=== PATIENT | female | born 1940 | race Caucasian/White ===

== ENCOUNTER 2024-02-20 03:09 | Emergency (ER) | payer MEDICARE, SELFPAY ==
[2024-02-20] VITALS (7 sets, daily range): BP systolic 121–134; BP diastolic 72–86; PULSE 60–92; RESP 16–20; TEMP 36.6–36.8; O2SAT 93–99; BMI 21.5
--- NOTE | 2024-02-20 03:25 | CT_ITS ---
INDICATION: fall EXAMINATION: CT CERVICAL SPINE - CT Spine Cervical W/O Contrast Injection TECHNIQUE: Helically acquired images were obtained of the cervical spine. 2D reformatted images were reviewed. A radiation dose optimization technique was used for this scan. IV Contrast dosage and agent: None. COMPARISON: CT head on same day. FINDINGS: VERTEBRAE: No fracture or acute compression deformity. Mild diffuse endplate degenerative change.. No discrete lytic or blastic abnormality. Degenerative straightening of the normal cervical lordosis without listhesis.. Normal craniocervical junction and cervicothoracic junction. DISCS and SPINAL CANAL: Disc height loss most prominent C5-C6 with minimal posterior disc osteophyte complex causing minimal spinal canal and mild bilateral neural foraminal narrowing.. No critical stenosis. NECK SOFT TISSUES: Right chest cardiac pacer. No prevertebral soft tissue swelling. There is no cervical adenopathy. Opacification bilateral mastoid air cells and middle ear. LUNG APICES: Clear. CT/Spine Cervical without Contras IMPRESSION: No evidence of acute cervical spinal fracture or spondylolisthesis. Findings consistent with bilateral otomastoiditis. Spondylosis as above. Cardiac pacer. Electronically Signed: Arvin Clarke MD at 4:59 EDT ,
--- NOTE | 2024-02-20 03:25 | CT_ITS ---
We are attempting to reach an attending provider to discuss findings. An addendum with communication details will be sent when the communication is complete. INDICATION: head ct EXAMINATION: CT BRAIN - CT Head or Brain W/O Contrast Injection TECHNIQUE: Multiple axial images were obtained of the head without intravenous contrast. A radiation dose optimization technique was used for this scan. IV Contrast dosage and agent: None. COMPARISON: CT cervical spine on same day FINDINGS: BRAIN PARENCHYMA: [Frontoparietal acute on chronic subdural hematoma up to 1.6 cm deep to prior craniotomy with small volume layering acute blood.. 3 mm [id number] midline shift. Suprasellar cisterns are preserved. No hydrocephalus. No intracranial mass. Mild periventricular and subcortical white matter hypodense chronic small vessel white matter ischemic change. Sequela of old left frontal parietal sr radiata lacunar infarct. There is otherwise preservation of the hutchins/white matter interface. Posterior fossa structures are unremarkable. Bilateral carotid atherosclerosis. CSF SPACES: Cerebral volume appropriate for age. No hydrocephalus. Basal cisterns are patent. CALVARIUM, SKULL BASE, PARANASAL SINUSES AND MASTOID AIR CELLS: Opacification bilateral mastoid air cells and middle ears. Old left frontal craniotomy. No acute osseous finding. Acute sphenoid sinus mucoperiosteal thickening.. ORBITS: Both globes, extraocular muscles, optic nerves and retrobulbar fat appear unremarkable. 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 Mild senescent changes with sequela of old left frontoparietal sr radiata lacunar infarct. Findings compatible with bilateral otomastoiditis. Mild diffuse sinus disease. Electronically Signed: Arvin Clarke MD at 4:54 EDT ,
--- NOTE | 2024-02-20 03:59 | EDS_ITS ---
HPI History of Present Illness Chief Complaint: Fall Informant: EMS and SNF Narrative Narrative: Patient is an 83-year-old female from the long term. assisted reports that they checked on the patient this morning and found her lying in her bed but there was blood noted on her pillow. They also reports that the patient was hospitalized earlier this month and prior to the hospitalization she was alert and oriented but now they have noticed she has been confused. The patient cannot tell them why her head was bleeding and therefore with the concern for head injury and confusion she was sent to the hospital for evaluation. [facility] Medical History (Updated 02/20/24 @ 05:[address] 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 Dysphagia Muscle weakness COPD (chronic obstructive pulmonary disease) Cardiac arrhythmia, unspecified Sick sinus syndrome Essential hypertension Depression Unspecified dementia, mild, without behavioral disturbance, psychotic disturbance, mood disturbance, and anxiety Hyperlipemia Home Medications ?Medication ?Instructions ?Recorded ?Last Taken ?Type acetaminophen 650 mg 650 mg PO TID 02/20/24 Unknown History tablet,extended release albuterol sulfate 90 mcg/actuation 2 inh inhalation Q4H PRN shortness 02/20/24 Unknown History aerosol inhaler of breath or wheezing amlodipine 5 mg tablet 5 mg PO DAILY 02/20/24 Unknown History cholecalciferol (vitamin D3) 50 2,000 unit PO DAILY 02/20/24 Unknown History mcg (2,000 unit) capsule (Vitamin D3) docusate sodium 100 mg capsule 100 mg PO QODAY 02/20/24 Unknown History levetiracetam 500 mg tablet 500 mg PO BID 02/20/24 Unknown History lisinopril 5 mg tablet 5 mg PO DAILY 02/20/24 Unknown History melatonin 5 mg capsule 5 mg PO QHS 02/20/24 Unknown History metoprolol tartrate 25 mg tablet 25 mg PO BID 02/20/24 Unknown History potassium chloride 10 mEq 10 meq PO DAILY 02/20/24 Unknown History tablet,extended release sennosides 8.6 mg-docusate sodium 1 tab-cap PO QHS 02/20/24 Unknown History 50 mg tablet (Senna-S) sertraline 100 mg tablet 100 mg PO DAILY 02/20/24 Unknown History simvastatin 40 mg tablet 40 mg PO QPM 02/20/24 Unknown History tiotropium bromide 1.25 2 inh inhalation DAILY 02/20/24 Unknown History mcg/actuation mist for inhalation (Spiriva Respimat) Allergy/AdvReac Type Severity Reaction Status Date / Time No Known Allergies Allergy Verified 02/20/24 03:11 Social History Smoking Status: Never smoker ROS ROS ED ROS Narrative Review of systems cannot be obtained secondary to mental status Review of Systems ROS Unobtainable: due to mental status EXAM Physical Exam Const Vital Signs: 02/20/24 03:13 02/20/24 03:17 02/20/24 05:11 Temperature 97.9 F Temperature Source Temporal Pulse Rate 92 64 Respiratory Rate 16 18 Respiratory Effort Normal Non-Labored Blood Pressure 121/86 H 134/72 H Blood Pressure Mean 97 92 Pulse Ox 99 98 93 Oxygen Delivery Method Nasal Cannula Room Air Room Air Oxygen Flow Rate (L/min) 5 02/20/24 07:00 Temperature Temperature Source Pulse Rate 60 Respiratory Rate 18 Respiratory Effort Blood Pressure 122/76 H Blood Pressure Mean 91 Pulse Ox 93 Oxygen Delivery Method Room Air Oxygen Flow Rate (L/min) Positive well nourished and well developed General Appearance ED: well developed HEENT HEENT Narrative: Patient has a 4 cm curved linear subcutaneous layer deep laceration along the midportion of the occipital/parietal section of the scalp. There is minimal ooze of blood with no retained foreign body. There is a surrounding scalp hematoma as well consistent with trauma. Patient does have surgical changes along the left forehead/temporal portion of the skull/scalp that do correlate with her recent admission for subdural hemorrhage requiring craniotomy. This wound is clean dry and intact without secondary changes to suggest infection. Eyes PERRL and EOMs intact bilaterally General Eye ED: Negative for scleral icterus Neck supple Neck Narrative: No bony deformity or step-off of the cervical spine no midline tenderness to palpation Chest Wall palpation of chest normal Chest Narrative: No bony deformity or crepitance of the chest wall No pain with palpation noted Resp normal respiratory effort and clear to auscultation bilaterally Resp Narrative: Breath sounds are diminished throughout but overall clear to auscultation without signs of distress Cardio regular rate and regular rhythm GI normal to inspection, nondistended, normoactive bowel sounds, non-tender, non- distended and no masses GI Narrative: No voluntary guarding or rigidity or pulsatile mass Auscultation: normoactive bowel sounds Palpation: soft Back/Spine Back/Spine Narrative: No bony deformity or step-off of the thoracic or lumbar spine no midline tenderness to palpation Extremity normal to inspection Extremity Narrative: Pelvis is stable there is no shortening or external rotation of either lower extremity Patient can move all extremities without difficulty or pain Neuro Neuro Narrative: Patient is awake but disoriented. Otherwise she does not have any focal neurologic deficit and can move all extremities and sit up without difficulty Skin Skin Narrative: Laceration with hematoma to the occipital portion of the scalp as well as postsurgical changes to the left frontal portion as documented above MDM MDM MDM Narrative Medical decision making narrative: Patient arrived to the ER with stable vitals. She is awake without focal neurologic deficit but does have confusion and cannot provide history or answer question. Physical exam does show direct trauma to the occipital portion of the scalp with a new laceration. Therefore with concern for skull fracture versus traumatic subdural or subarachnoid hemorrhage a CT scan of the head was obtained. With concern there could also be a cervical compression fracture or spondylolisthesis the CT scan was continued through the cervical spine. She does not have pain with palpation along her thoracic or lumbar spine there is no obvious bony deformity or joint effusion on exam noted her pelvis is stable and therefore my concern for long bone fracture rib fracture or pelvis/hip fracture is low and do not feel there is need for further imaging. Chart review reveals that she was recently in an outside hospital roughly 10 days ago secondary to a traumatic subdural hemorrhage and had undergo craniotomy. The neurosurgeons note from that time states that she will be encephalopathic and most likely be confused for weeks to months prior to it's resolution. Therefore the fact that she is confused is not abnormal from her recent diagnosis and surgical procedure and I feel there is no need for further investigation such as blood work or urine sample. However with the new trauma I did feel it was necessary to perform repeat scans in order to ensure there is no new or recurrent bleed or fracture. Imaging studies this morning show no signs of cervical spine fracture or spondylolisthesis. However there is a new acute on chronic subdural hematoma roughly 1.6 cm in size with 3 mm of shift. Secondary to this acute finding I discussed the case with neurosurgery at [facility] [place] as they have recently operated on and taking care of the patient. The case was discussed with neurosurgeon Dr. Bateman. She recommends as patient is hemodynamically stable at her baseline mental status and not on anticoagulation that it would be more appropriate to watch her and repeat a CT scan 6 hours from the initial. She states that if the CT scan does not show an expanding hematoma and the patient remained stable then she can be discharged back to the long term and follow-up on an outpatient basis. However if the repeat CT scan shows worsening of the bleed or patient becomes hemodynamically unstable or develops seizure activity then she will need to be transferred back to their center for further care. This plan of care was discussed with the patient's son and he is agreeable to it. As the patient has not reached the 6-hour time chrissy for the repeat CT scan the case will be signed out to the day physician Dr. Cota to follow the repeat images and provide disposition. Patient had the scalp wound cleaned with chlorhexidine. It was anesthetized using 8 mL of 2% lidocaine with epinephrine and local fashion. The wound was copiously irrigated with normal saline. Then 10 sue were placed across the wound edges bring it together with good approximation. Patient tolerated procedure well without complication. History & Record Review Discussion w/independent historian: Family Additional record(s) reviewed:: Prior inpatient record Lab Data Attestation: I reviewed the patient's lab results. 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 Mild senescent changes with sequela of old left frontoparietal sr radiata lacunar infarct. Findings compatible with bilateral otomastoiditis. Mild diffuse sinus disease. 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 Mild senescent changes with sequela of old left frontoparietal sr radiata lacunar infarct. Findings compatible with bilateral otomastoiditis. Mild diffuse sinus disease. N.B. : The above Results were Read Back by Arvin Clarke MD to Zain Rosenberg DO, and understanding confirmed on 02/20/2024 05:01:17 (ET). Electronically Signed: Arvin Clarke MD at 4:54 EDT , Cervical Spine CT 02/20/24 03:25 IMPRESSION: No evidence of acute cervical spinal fracture or spondylolisthesis. Findings consistent with bilateral otomastoiditis. Spondylosis as above. Cardiac pacer. Electronically Signed: Arvin Clarke MD at 4:59 EDT , Management Discussion w/another healthcare provider: [employer] Radiologist Discharge Plan Triage Chief Complaint: Fall ED Provider: Zain Rosenberg Dx/Rx/DC Orders Clinical Impression: Laceration of occipital scalp, Hematoma of occipital region of scalp, Accidental fall, Hypertension, Hyperlipidemia, History of subdural hemorrhage, Subdural hematoma, acute Instructions: ED Laceration Scalp Stitches or [place] Prescriptions: No Action Spiriva Respimat 1.25 mcg/actuation mist 2 inh inhalation DAILY cholecalciferol (vitamin D3) [Vitamin D3] 50 mcg (2,000 unit) capsule 2,000 unit PO DAILY docusate sodium 100 mg capsule 100 mg PO QODAY levetiracetam 500 mg tablet 500 mg PO BID sertraline 100 mg tablet 100 mg PO DAILY potassium chloride 10 mEq tablet extended release 10 meq PO DAILY simvastatin 40 mg tablet 40 mg PO QPM lisinopril 5 mg tablet 5 mg PO DAILY metoprolol tartrate 25 mg tablet 25 mg PO BID amlodipine 5 mg tablet 5 mg PO DAILY acetaminophen 650 mg tablet extended release 650 mg PO TID albuterol sulfate 90 mcg/actuation HFA aerosol inhaler 2 inh inhalation Q4H PRN (Reason: shortness of breath or wheezing) melatonin 5 mg capsule 5 mg PO QHS sennosides-docusate sodium [Senna-S] 8.6-50 mg tablet 1 tab-cap PO QHS Primary Care Provider: Ye Gómez Referrals: Ye Gómez DO [Primary Care Provider] - Activity Restrictions/Additional Instructions: Please see your family doctor or return to the ER in 10 to 14 days for staple removal. Continue all of your home medications as previously directed and return to the ER if you have any further concerns. Also please follow-up with the neurosurgeon as directed secondary to the acute on chronic bleed that occurred after today's head trauma Print Language: [place] Zealander
[2024-02-20] MEDS: Lidocaine 2% /Epi 1:100 (20ml) 20 ML VIAL INFILT (04:10)
[2024-02-20 06:10] LABS: Absolute Lymphocyte Count 2.01 X10^3/uL (0.83-4.51); Absolute Neutrophil Count 8.2 X10^3/uL (2.0-7.7); Basophil# 0.07 X10^3/uL; Basophil% 0.6 % (0-1); Eosinophil# 0.17 X10^3/uL; Eosinophils% 1.5 % (0-5); Hematocrit 37.6 % (37-47); Hemoglobin 12.1 g/dL (12.0-15.0); Lymphocyte # 2.01 X10^3/ul (0.83-4.51); Lymphocyte % 17.6 % (19-41); Mean Corp Hgb Conc 32.2 g/dL (32-36); Mean Corpuscular Hgb 28.5 pg (27.0-32.0); Mean Corpuscular Volume 88.5 fL (81-99); Mean Platelet Vol. 10.2 fl (6.2-12.0); Monocyte# 0.87 X10^3/uL; Monocyte% 7.6 % (0-10); NRBC Flagged by Analyzer 0 % (0-5); Neutrophil # 8.15 X10^3/uL (2.7-7.7); Neutrophil % 71.6 % (47-70); Platelet Count 222 K/mm3 (150-450); RBC Distribution Width CV 14.8 % (11.6-14.6); RBC Distribution Width SD 47.8 fl (35.1-43.9); Red Blood Count 4.25 M/mm3 (4.2-5.4); White Blood Count 11.4 K/mm3 (4.4-11.0)
[2024-02-20 06:21] LABS: International Normalized Ratio 1.8; Prothrombin Time (Protime)PT. 20.9 SECONDS (11.7-14.9)
[2024-02-20 06:22] LABS: Partial Thromboplast Time 44.1 Seconds (24.1-36.2)
--- NOTE | 2024-02-20 09:40 | CT_ITS ---
STUDY: CT BRAIN WITHOUT CONTRAST REASON FOR EXAM: Female, 83 years old. Head injury -- Acute on chronic subdural. Check if increasing RADIATION DOSAGE (If Supplied By Facility): CTDIvol = ( 44.99 ) mGy, DLP = ( 796.11 ) mGycm TECHNIQUE: Transaxial CT imaging of the brain was performed without administration of intravenous contrast material. Individualized dose optimization techniques were used for this CT. COMPARISON: Comparison is made with prior study done earlier in the day. FINDINGS: Normal soft tissue structures. Patient is status post left frontal craniotomy. Stable acute on chronic subdural hematoma overlying the left frontal parietal lobes. There is mild cerebral atrophy with widening of the extra-axial spaces and ventricular dilatation. There are areas of decreased attenuation within the white matter tracts of the supratentorial brain, consistent with microvascular disease changes. Stable small bilateral lacunar infarcts in the basal ganglia. Normal brainstem. Normal cerebellum. Stable opacification of the bilateral mastoid air cells and middle ear. CT/Brain/Head without Contrast IMPRESSION: Stable appearance of the left acute on chronic subdural hematoma. Electronically Signed: Eduardo Toro MD at 10:03 EDT ,
[2024-02-20 09:47] LABS: Anion Gap 11 (5-15); BUN 13 mg/dL (7-18); BUN/Creat Ratio 20.6 RATIO (10-20); Calcium,Total 9.1 mg/dL (8.5-10.1); Chloride 104 mmol/L (98-107); Creatinine, Serum 0.63 mg/dL (0.55-1.02); EST Glomerular Filtration Rate 95 mL/min (>60); Est Glom Filt Rate - Afr Amer 115 mL/min (>60); Glucose 99 mg/dL (74-106); Potassium 3.2 mmol/L (3.5-5.1); Sodium Level 140 mmol/L (136-145)
--- NOTE | 2024-02-20 10:33 | ED.RN ---
called [facility] neurosurgery and dr baltazar talked with abhishek hurley.
--- NOTE | 2024-02-20 10:43 | ED.RN ---
This RN called report back to Agata at [facility] and updated her that she would be returning back.
--- NOTE | 2024-02-20 10:58 | ED.RN ---
Called physicians for transport back to [facility]. ETA 30 min
[2024-02-22 16:10] LABS: KEPPRA (LEVETIRACETAM) 12.8 ug/mL (10.0-40.0)
== END 2024-02-20 11:16 | disposition home or self-care (01) ==
PROVIDERS: Emergency Provider Emergency Medicine; Visit Provider Emergency Medicine
DX: S01.01XA Laceration without foreign body of scalp, initial encounter (principal); F03.90 Unspecified dementia, unspecified severity, without behavioral disturbance, psychotic disturbance, mood disturbance, and anxiety; J44.9 Chronic obstructive pulmonary disease, unspecified; S06.5X0A Traumatic subdural hemorrhage without loss of consciousness, initial encounter; I10 Essential (primary) hypertension; E78.5 Hyperlipidemia, unspecified; W19.XXXA Unspecified fall, initial encounter; Y92.129 Unspecified place in nursing home as the place of occurrence of the external cause; Z86.73 Personal history of transient ischemic attack (TIA), and cerebral infarction without residual deficits; Z95.0 Presence of cardiac pacemaker; Z79.899 Other long term (current) drug therapy; F32.A Depression, unspecified
CPT/HCPCS: 12002; 70450; 72125; 80048; 80177; 85025; 85610; 85730; 99285; A4216